=== PATIENT | male | born 1960 | race Caucasian/White ===

== ENCOUNTER 2018-01-04 07:36 | Day surgery (SDC) | payer OTHER ==
[~2018-01-04 07:36] MED LIST: ACETAMINOPHEN 1,000 MG/100 ML BTL IV ONE; CEFAZOLIN 2 Gram 2 GM/50 ML BAG IVPB ONE
[2018-01-04] MEDS ORDERED: FENTANYL PF 100MCG/2ML VIAL IV ONE (07:37)
[2018-01-04] MEDS ORDERED: ROPIVACAINE HCL (NAROPIN) /PF 5MG/ML 20ML VIAL IV ONE (07:37)
[2018-01-04] MEDS ORDERED: ONDANSETRON HCL IV 4 MG/2 ML VIAL IVP ONE (07:37)
[2018-01-04] MEDS ORDERED: SEVOFLURANE 250 ML INH ONE (07:37)
[2018-01-04] MEDS ORDERED: DEXAMETHASONE 4 MG/ML 1ML VIAL IVP ONE (07:37)
[2018-01-04] MEDS ORDERED: LABETALOL HCL 5MG/ML, 20ML VIAL IV ONE (07:37)
[2018-01-04] MEDS ORDERED: LIDOCAINE 2% MDV (20MG/ML) 20ML VIAL IV ONE (07:37)
[2018-01-04] MEDS ORDERED: EPHEDRINE SULFATE 50 MG/ML ML IV ONE (07:37)
[2018-01-04] MEDS ORDERED: MIDAZOLAM HCL 2MG/2ML VIAL IV ONE (07:37)
[2018-01-04] MEDS ORDERED: BUPIVACAINE 0.5% W/EPI MPF 30 ML VIAL IVP ONE (07:37)
[2018-01-04] MEDS ORDERED: KETOROLAC 30 MG/ML VIAL IVP ONE (07:37)
[2018-01-04] MEDS ORDERED: HYDROMORPHONE HCL 2 MG/ML VIAL IV ONE (07:37)
[2018-01-04] MEDS ORDERED: PROPOFOL 10 MG/ML VIAL IV ONE (07:37)
--- NOTE | 2018-01-05 22:57 | Operative Note ---
DATE OF SURGERY: 01/04/2018. PREOPERATIVE DIAGNOSIS: 1. Left shoulder SLAP lesion. 2. AC joint arthrosis. 3. Impingement/tendinitis. POSTOPERATIVE DIAGNOSIS: 1. Left shoulder SLAP lesion. 2. AC joint arthrosis. 3. Impingement/tendinitis. PROCEDURE: 1. Diagnostic arthroscopy. 2. Arthroscopic debridement of Type II SLAP lesion. 3. Arthroscopic biceps tenodesis. 4. Arthroscopic acromioplasty. 5. Arthroscopic excision of the distal clavicle. SURGEON: Berhane Carlson M.D. ANESTHESIA: Spinal COMPLICATIONS: None ESTIMATED BLOOD LOSS: Minimal OPERATIVE FINDINGS: Type II SLAP lesion, AC joint arthrosis COMPONENTS PLACED: Healicole Regenesorb, 4.75mm Suture [place] with two ultrabraid #2 Sutures. HISTORY: This is a 57-year-old male who has had left shoulder pain since a work injury. He was cinching up a chain on a trailer tractor and it snapped back, jerking his left shoulder. He ended up having arthroscopic acromioplasty and excision of the distal clavicle in [place] but still had persistent pain in his shoulder. After further work-up, injection, and MR arthrogram, which revealed tear of the superior labrum and he is scheduled for surgery. I explained to the patient all the risks and benefits thoroughly in detail for the diagnosis and procedures including but not limited to infection, nerve injury, vessel injury, persistent pain, stiffness, numbness and tingling in his shoulder, re-tear of the rotator cuff, re-tear of his labrum and need for further procedures and all of his questions were answered. Rehab and course were outlined and he agreed to proceed. PROCEDURE: The patient was brought to the O.R. and placed in the beach chair position for the proper surgery. Spinal anesthesia was induced after interscalene block with Exparel was performed and his left upper extremity and shoulder were prepped and draped in the usual sterile fashion. The left shoulder was prepped again with ChloraPrep after it was draped. Intraoperative time-out was performed. Preoperative range was full. No instability. Next, the glenohumeral joint, subacromial space, and AC joint were injected with 0.5% Marcaine with Epinephrine. A standard posterior arthroscopic portal was established 2.0 cm inferior and 1.0 cm medial to the posterolateral corner of the acromion and the anterior portal was established through the rotator interval under direct visualization. Diagnostic arthroscopy was performed. The biceps tendon had some inflammation but otherwise was normal. It was pulled up within the glenohumeral joint to inspect the upper portion. The superior labrum and anterior limb were completely torn. He had multiple shredded fragments of labral tissue floating within the joint. We medially debrided that back to a smooth stable surface and planned on doing a biceps tenodesis. The posterior superior labrum was again debrided lightly and was otherwise normal. The posterior inferior labrum was normal. The inferior labrum had some slight fraying. We debrided that lightly with a small shaver. There was no complete tear here, however, of the anterior inferior , posterior inferior labrum. The glenohumeral head articular cartilage was normal. The undersurface of the rotator cuff was thoroughly inspected. He did have a significant partial-thickness tear about 1 cm wide, about 60-70% width of the tendon insertion site. The posterior portion of the cuff and the were normal. The superior and middle glenohumeral ligaments were intact. The subscap tendon and subscap recess were normal. Anterior inferior labrum and glenohumeral ligaments were normal. Next, the bone cutting blade was inserted in the anterior portal. We debrided back the upper biceps groove and greater tuberosity at the tear site to bleeding bone surface to the articular margin. We plan on doing partial ligamentous repair with biceps tenodesis incorporation. Next, an anterior subacromial portal was established. A tissue blade was inserted in the anterior subacromial portal and a subacromial bursectomy was performed outlining the anterior lateral edge of the acromion with coracoacromial completely up to the inferior AC joint capsule. Next, a lateral portal was established at the posterior margin of the AC joint. A 5.5 mm dalton was inserted there. We took off strips of bone working from lateral to medial and anterior to posterior smoothing out the subacromial surface and rasped to smooth it further. Next, the dalton was inserted into the anterior portal. We burred down the medial acromial facet and resected the distal clavicle 1 cm and verified the AC joint was completely free of any bony impingement and bony fragments. We inserted the shaver superiorly in the AC joint and completed smoothing both bony surfaces and verified this was completely free of any bony impingement or bony fragments. Next, we resected the bursa around the periphery of the rotator cuff and thoroughly inspected the bursa. The cuff was intact. Next, we proceeded with rotator cuff repair and biceps tenodesis. We localized the entry point off the anterior lateral acromial edge for the rotator cuff anchor. We made a small stab incision and inserted the disposable cannula there and inserted the punch tap at the upper biceps groove just posterior to the biceps to incorporate the rotator cuff repair as well. We then inserted the anchor burying it beneath the surface of the bone. Next, we passed one limb from each set of sutures into the joint line. We passed the penetrator through the anterior cuff, through the mid portion of the biceps tendon and grasped a loop of suture, bringing it back through the other side. We released that loop and then placed the penetrator back through the loop and then grasping the corresponding limb and pulling it through the loop, effectively loop-lassoing the biceps here. The remainder of the three other suture limbs were passed in a simple fashion medial to the partial flap tear for two-mattress sutures. We then tied those down over the top, first using the Revo knot and backed it up to reverse it on the post throws and then a taut-line hitch backed it up with three reverse hitch on alternating post throws. We cut the sutures with a suture cutter. We directed our attention inside the the joint and then we used arthroscopic curved scissors and cut the biceps from the superior labral attachment. We debrided both ends and verified the labrum was completely debrided with smooth surfaces nicely now. This completed our procedure and the rotator cuff footprint was nicely reestablished on the articular surface. This completed our procedures. The scope and equipment were removed. The scope incisions were covered with Steri-Strips, bolused, and sterile dressing applied with an UltraSling. The patient tolerated the procedures well. No intraoperative complications. All sponge, needle, and blade counts were correct. Recovery room stable, neurovascularly intact. He will be discharged as an outpatient and he will follow-up in two weeks. JOB NUMBER: [id number] [facility]
== END 2018-01-04 12:20 | disposition home or self-care (01) ==
LOC: SUR 07:36
PROVIDERS: ATTEND Orthopaedic Surgery
DX: S43.422A Sprain of left rotator cuff capsule, initial encounter (principal); F17.200 Nicotine dependence, unspecified, uncomplicated; K02.9 Dental caries, unspecified; Z72.89 Other problems related to lifestyle; R01.0 Benign and innocent cardiac murmurs
CPT/HCPCS: 29805; 29823; 29826; 29822; 01630; 64415; 93005; J1885; J2405; J3010; J1170; J0690; J2795; 76942; C1713